=== PATIENT | male | born 1960 | race Caucasian/White ===

== ENCOUNTER 2019-08-24 13:48 | Emergency (ER) | payer OTHER, SELFPAY ==
--- NOTE | ~2019-08-24 | XR_ITS ---
XR hand RT min 3V DATE: 08/24/2019 14:13 INDICATION: Injury by ceiling fan. Pain. TECHNIQUE: 3 views of right hand COMPARISON: None FINDINGS: Osteoarthritic changes are noted at the first through third metacarpophalangeal joints and at the interphalangeal joint of the thumb and distal interphalangeal joint of the second digit in par ticular. No recent fracture, dislocation, periosteal reaction or bone destruction is evident. IMPRESSION: Osteoarthritis; no fracture or dislocation Reviewed, dictated and finalized at location A.
--- NOTE | 2019-08-24 13:52 | ED.GENADULT ---
HPI - General Adult General Chief complaint: Extremity Injury, Upper Stated complaint: right hand injury Time Seen by Provider: 08/24/19 13:52 Source: patient Mode of arrival: ambulatory Limitations: no limitations History of Present Illness HPI narrative: 59-year-old male patient presents to the [facility] with complaints of right hand pain specifically to the index and middle finger. Patient states that about a week ago he was putting on his jacket and reaching up his hand towards the ceiling putting his jacket on and his ceiling fan was on high and he hit his hand on the ceiling fan. Patient states since then he has been taking ibuprofen for the pain and icing it as well as soaking it in warm water. Patient says he feels like it is getting worse and has discomfort when trying to bend the pointer finger and middle finger. Patient denies any numbness or tingling. Related Data Home Medications Medication Instructions Recorded Confirmed lisinopril 40 mg PO DAILY 08/24/19 08/24/19 Allergies Allergy/AdvReac Type Severity Reaction Status Date / Time No Known Allergies Allergy Verified 08/24/19 13:55 Review of Systems Review of Systems: Narrative: CONSTITUTIONAL: Denies fever, chills, or sweats. EYES: Denies visual changes, redness, or discharge. ENT: Denies rhinorrhea, congestion, sore throat, or otalgia. CARDIOVASCULAR: Denies chest pain, palpitations, or edema. RESPIRATORY: Denies cough or dyspnea. GASTROINTESTINAL: Denies abdominal pain, nausea, vomiting, or diarrhea. GENITOURINARY: Denies dysuria or hematuria. SKIN: Denies rash or itching. MUSCULOSKELETAL: Denies back pain, joint pain, or myalgia. Positive right hand pain over the index and middle finger x1 week NEUROLOGIC: Denies headache, numbness, or weakness. PSYCHIATRIC: Denies anxiety or depression. PMFSH Comments At the time of my signature I agree with nursing past medical history, surgical, social, and family history. There is no relevant family history pertinent to the presenting complaint. Exam Narrative: Exam Narrative: GENERAL: Well-appearing, well-nourished, and in no acute distress. HEAD: Normocephalic, atraumatic. EYES: PERRLA and EOMI. ENT: Nares clear, no rhinorrhea or epistaxis. Mucous membranes moist. NECK: Supple. No lymphadenopathy CHEST: Clear to auscultation. No respiratory distress. HEART: Regular rate and rhythm. No murmur heard. Normal peripheral pulses. ABDOMEN: Soft, nontender, nondistended, normal active bowel sounds. EXTREMITIES: The R hand is without obvious asymmetry or deformity when compared to the L hand. Slight swelling noted over the MIP joint of the index finger on the right hand, no erythema, atrophy, or obvious deformity. No surface trauma, open wounds, nail avulsion, tissue avulsion, partial or complete amputation, subungual hematoma, bony deformity. Decreased cascade of fingers especially to the index and middle finger on the right hand. Normal extension of fingers. Patient does have pain and tenderness to palpation over the MIP joint of the right index finger and the MIP joint of the right middle. Pulses and cap refill. SKIN: Warm, dry, no rash. NEURO: No focal deficits. Alert and oriented x3. Course Reevaluation(s) Reevaluation #1: Reevaluated patient after his x-ray had resulted. Notified patient that there is no fractures noted in his x-ray however does appear that he is got some severe osteoarthritis. Discussed with him that the fact that he bumped his hand to the area as well as the fact that is been very rainy recently this could have flared up his osteoarthritis. Discussed with him that I would recommend switching to Tylenol rather than ibuprofen because it is shown that Tylenol has better effect with a constant osteoarthritis. Discussed with patient that he should also be doing some gentle stretching exercises and trying to move that joint to help with range of motion. Discussed with patient I would also encourage i
[2019-08-24 13:56] VITALS: BP 140/80; PULSE 72; RESP 20; TEMP 36.9; O2SAT 99
== END 2019-08-24 14:45 | disposition home or self-care (01) ==
PROVIDERS: Emergency Provider Nurse Practitioner Family; PCP Family Medicine
DX: M19.041 Primary osteoarthritis, right hand (principal); I10 Essential (primary) hypertension
CPT/HCPCS: 73130; 99213; G0463

== ENCOUNTER 2022-05-28 14:24 | Outpatient (CLI) | payer OTHER, SELFPAY ==
[2022-05-28 15:12] LABS: Basophils Percent Auto 0.5 % (0.2-1.2); Eosinophils Absolute Auto 0.4 K/mm3 (0-0.3); Eosinophils Percent Auto 6.9 % (0-4.4); Hematocrit 46.1 % (42.0-52.0); Hemoglobin 15.6 g/dL (14.0-18.0); Immature Granulocyte Absolute 0.03 K/mm3 (0.00-0.031); Immature Granulocyte Percent A 0.5 % (0-0.5); Lymphocytes Absolute Auto 1.71 K/mm3 (0.9-3.2); Lymphocytes Percent Auto 30.4 % (18.3-44.2); Mean Corpuscular HGB Conc 33.8 g/dl (32-36); Mean Corpuscular Hemoglobin 33.2 pg (26-34); Mean Corpuscular Volume 98.1 fl (80-100); Mean Platelet Volume 10.3 fl (7.4-10.4); Monocytes Absolute Auto 0.5 K/mm3 (0.1-0.6); Monocytes Percent Auto 8.9 % (2.6-8.5); Neutrophils Percent Auto 52.8 % (45.5-73.1); Platelet Count Result 176 k/mm3 (150-375); Red Cell Distribution Width 12.7 % (11.5-14.5); White Blood Count 5.6 K/mm3 (4.5-10.0)
[2022-05-28 15:15] LABS: Appearance Urine Clear (Clear); Bilirubin Urine Negative (Negative); Blood Urine Negative (Negative); Color Urine Yellow (Yellow); Glucose Urine UA Negative (Negative); Ketones Urine Negative (Negative); Leukocyte Esterase Ur Negative LEU/UL (NEGATIVE); Nitrate Urine Negative (Negative); Protein Urine Negative (Negative); Urobilinogen Urine 0.2 mg/dL (<2.0); pH Urine 5.5 (5.0-9.0)
[2022-05-28 15:26] LABS: Alanine Aminotransferase 38 U/L (6-50); Albumin Level 4.7 g/dL (3.5-5.1); Alkaline Phosphatase 97 U/L (38-126); Anion Gap 8 mmol/L (8-16); Aspartate Amino Transferase 33 U/L (17-59); Bilirubin,Total 0.5 mg/dL (0.2-1.3); Blood Urea Nitrogen 14 mg/dL (9-20); Calcium 9.2 mg/dL (8.4-10.2); Carbon Dioxide 28 mmol/L (22-30); Chloride 103 mmol/L (98-107); Cholesterol 180 mg/dL (0-200); Estimated Glomerular Filt Rate > 60; Glucose 85 mg/dL (65-110); HDL Direct 58 mg/dL; Magnesium 2.2 mg/dL (1.6-2.3); Potassium 3.7 mmol/L (3.4-5.0); Sodium 139 mmol/L (137-145); Triglycerides 199 mg/dL (<150); Uric Acid 9.9 mg/dL (3.5-8.5)
[2022-05-28 15:37] LABS: LDL Cholesterol Direct 84 mg/dL
[2022-05-28 15:45] LABS: Add Urine Microscopic? YES; Mucus Urine Rare /lpf; Squamous Epithelial Cell Urine Rare /hpf (Few); WBC Urine 0-3 /hpf (0-3)
[2022-05-28 15:51] LABS: Non Pathogenic Casts Not Present
[2022-05-28 15:56] LABS: Prostate Specific Antigen 1.4 ng/mL (< OR = 4.0); Thyroid Stimulating Hormone 0.995 uIU/mL (0.465-4.680)
[2022-05-28 16:32] LABS: Folic Acid 6.1 ng/mL (2.76->20)
[2022-05-28 19:49] LABS: Hemoglobin A1C 5.3 % (<5.7)
== END 2022-05-28 14:25 | disposition home or self-care (01) ==
LOC: ANHLAB 14:26
PROVIDERS: PCP Nurse Practitioner Family; Visit Provider Nurse Practitioner Family
DX: Z13.6 Encounter for screening for cardiovascular disorders (principal); Z13.1 Encounter for screening for diabetes mellitus; Z13.0 Encounter for screening for diseases of the blood and blood-forming organs and certain disorders involving the immune mechanism; I10 Essential (primary) hypertension; Z68.29 Body mass index [BMI] 29.0-29.9, adult; R20.8 Other disturbances of skin sensation; Z12.5 Encounter for screening for malignant neoplasm of prostate; R25.2 Cramp and spasm; Z13.29 Encounter for screening for other suspected endocrine disorder
CPT/HCPCS: 36415; 80053; 80061; 81001; 82607; 82746; 83036; 83735; 84153; 84443; 84550; 85025; G0103

== ENCOUNTER → 2022-12-04 16:16 | Outpatient (CLI) | payer OTHER, SELFPAY ==
--- NOTE | ~2022-12-04 | XR_ITS ---
EXAMINATION: XR hip BI 2V w AP pelvis DATE: 12/04/2022 16:32 INDICATION: Right hip pain. TECHNIQUE: An anteroposterior view of the pelvis and 2 views of each hip were obtained. COMPARISON: None. FINDINGS: Bone alignment is normal. No fracture. There is moderate osteoarthritis of the hips. Surgic al clips overlie right ilium. IMPRESSION: 1. Moderate osteoarthritis of the hips. Reviewed, dictated and finalized at location E.
--- NOTE | ~2022-12-04 | XR_ITS ---
EXAMINATION: XR lumbar spine min 4V DATE: 12/04/2022 16:32 INDICATION: Lumbago with sciatica, right side. TECHNIQUE: 5 views of lumbar spine were obtained. COMPARISON: Lumbar spine radiographs 08/15/2004 FINDINGS: There is 3 degrees dextrocurvature of lumbar spine. There is mild chronic anterior wedging of T12 and L1 vertebral bodies. There is mildly decreased disc height at L4-L5. There are endplate os teophytes at all levels. There is multilevel facet joint osteoarthritis, severe bilaterally at L4-L5 and L5-S1. IMPRESSION: 1. Mild lumbar spondylosis. Reviewed, dictated and finalized at location E. IMPRESSION: 1. Mild lumbar spondylosis.
== END ==
PROVIDERS: PCP Family Medicine; Visit Provider Nurse Practitioner Family
DX: M54.41 Lumbago with sciatica, right side (principal); M54.42 Lumbago with sciatica, left side; G89.29 Other chronic pain; M47.896 Other spondylosis, lumbar region; M16.0 Bilateral primary osteoarthritis of hip
CPT/HCPCS: 72110; 73521

== ENCOUNTER 2023-12-01 11:03 | Observation (INO) | payer OTHER, SELFPAY ==
[2023-12-01] VITALS (9 sets, daily range): BP systolic 126–167; BP diastolic 72–96; PULSE 65–99; RESP 17–22; TEMP 35.9–37.5; O2SAT 93–100
--- NOTE | ~2023-12-01 | US_ITS ---
EXAMINATION: US scrotum doppler DATE: 12/01/2023 12:16 INDICATION: Scrotal mass and pain TECHNIQUE: Testicular sonogram utilizing grayscale and Doppler COMPARISON: None. FINDINGS: The right testis measures 3.2 x 2.9 x 2.2 cm. The left testis measures 3.6 x 2.5 x 2.2 cm. There are multiple tiny echogenic microcalcifications at both testes. Symmetric otherwise normal grayscale appe arance to both testes. There is normal vascular flow to both testes. 3-4 mm anechoic epididymal cyst at the head of the right epididymis. The right epididymis is otherwise normal with normal vascular fl ow. The left epididymis is normal with normal vascular flow. There is a small right hydrocele. No murtaza icocele. Inferolateral to the left testis in the left scrotal wall is a 5.1 x 4.4 x 2.9 cm lesion which is yudelka trally relatively homogeneously hyperechoic and with peripheral scalloped margin surrounded by very h ypoechoic likely complex fluid. There is hyperemia surrounding the lesion on color Doppler but withou t definitive internal vascular flow. There is a shadowing coarse calcification at the periphery of th e lesion. There is a second 2.0 x 1.9 x 1.8 cm similarly hyperechoic lesion also some surrounding vas cular flow but no internal vascular flow on color Doppler. The second lesion extends to within 2 mm o f the skin surface. IMPRESSION: 1. A couple relatively hyperechoic lesions in the left scrotum inferolateral to the left testis. The absence of internal vascular flow and color Doppler raises suspicion of a complex cystic lesion whic h could be infectious or inflammatory in etiology with differential including abscess, hematoma or ep idermoid cyst. Cannot however exclude an extra testicular solid neoplasm either benign or malignant. 2. Small right epididymal head cyst and a few microcalcifications of the otherwise unremarkable bilat eral testes. 3. Small simple appearing anechoic right hydrocele. Reviewed, dictated and finalized at location A. IMPRESSION: 1. A couple relatively hyperechoic lesions in the left scrotum inferolateral t o the left testis. The absence of internal vascular flow and color Doppler rais es suspicion of a complex cystic lesion which could be infectious or inflammato ry in etiology with differential including abscess, hematoma or epidermoid cyst . Cannot however exclude an extra testicular solid neoplasm either benign or ma lignant. 2. Small right epididymal head cyst and a few microcalcifications of the otherw ise unremarkable bilateral testes. 3. Small simple appearing anechoic right hydrocele.
--- NOTE | 2023-12-01 11:17 | ED.MALEGU ---
HPI - Male Genitourinary General Chief complaint: Urogenital-Male <Callie Yao PA-C - Last Filed: 12/03/23 13:09> Stated complaint: growth on scrotum <Callie Yao PA-C - Last Filed: 12/03/23 13:09> Time Seen by Provider: 12/01/23 11:17 <Callie Yao PA-C - Last Filed: 12/03/23 13:09> Focused HPI: This is a 63-year-old male that presents to the emergency department for growth on his scrotum. Reports he has had this years ago and had to have it removed in the past. He a noticed it appearing again recently, the area is painful. Denies fevers, dysuria, hematuria. GENERAL: Well-appearing, well-nourished, and in no acute distress. HEAD: Normocephalic, atraumatic. CHEST: Clear to auscultation. ?No respiratory distress. HEART: Regular rate and rhythm.? NEURO: ?Alert and oriented x3. Patient screened in triage and initial orders placed.? ?Additional care and disposition to be based upon?diagnostic testing and treatment. <Callie Yao PA-C - Last Filed: 12/03/23 13:09> History of Present Illness HPI Narrative: 63-year-old male presenting with scrotal pain. States that he has had a growth on his scrotum for many years but over the last few days it has become increasingly painful. No fevers, dysuria, hematuria. No abdominal pain, no nausea or vomiting. Patient saw Urology who advised that he come in. <Kristine Clements MD - Last Filed: 12/01/23 21:26> Related Data Home medications: Home Medications Medication Instructions Recorded Confirmed cetirizine 10 mg tablet (Zyrtec) 10 mg PO DAILY allergy symptoms 09/29/23 12/01/23 <Callie Yao PA-C - Last Filed: 12/03/23 13:09> Allergies/Adverse reactions: Allergies Allergy/AdvReac Type Severity Reaction Status Date / Time No Known Allergies Allergy Verified 12/01/23 18:09 <Callie Yao PA-C - Last Filed: 12/03/23 13:09> Review of Systems Review of Systems: All systems reviewed & are unremarkable except as noted in HPI and below <Kristine Clements MD - Last Filed: 12/01/23 21:26> [facility] Past Medical History Medical History: Medical History Anxiety Arthritis B12 deficiency Bilateral hip pain BMI 28.0-28.9,adult BMI 29.0-29.9,adult BMI 30.0-30.9,adult Burning sensation of feet Chest pain Chronic low back pain with bilateral sciatica Chronic rhinitis COPD (chronic obstructive pulmonary disease) Elevated uric acid in blood Encounter to establish care Heart attack Hernia HTN (hypertension) Hypersomnia Low back pain Muscle cramping Rash and nonspecific skin eruption Rhinitis Screening for malignant neoplasm of colon declined Screening for malignant neoplasm of lung declined by patient Snoring Tobacco abuse <Callie Yao PA-C - Last Filed: 12/03/23 13:09> Family History Family History: Family History Father Alcohol abuse Cancer Diabetes mellitus Mother Hypertension Heart disease Grandparent Alcohol abuse <Callie Yao PA-C - Last Filed: 12/03/23 13:09> Social History Social History: Social History Smoking packs per day: 2 Smoking cigarettes per day: 40.0 Years smoked: 45 Smoking pack-years: 90.00 Smoking status: Current every day smoker Tobacco type: cigarettes Alcohol intake: current Drinks per week: 12 Alcohol use details: BEERS Substance use: current Substance use type: marijuana Other substance usage details: RECREATIONAL AND PAIN Last use: 11/29/23 Do You Feel Safe in your Home?: Yes Lack of Transportation: No Lack of Food: Never True Current Housing: Decline to Answer Concerned About Future Housing: No Difficulty Paying Gas/Electric Bills: No Difficulty Paying for Meds: YES Currently Unemployed: No Education: Decline to
[2023-12-01] MEDS: SODIUM CHLORIDE 0.9% IV 1,000 ML 999 ML IV CONT (14:18)
[2023-12-01] MEDS: cefTRIAXone 2 GM/NS 100 ML 2 GM/100 ML BAG IVPB (14:19)
[2023-12-01] MEDS: metroNIDAZOLE 500 MG/ISO 100ML 500 MG/100 ML BAG 100 MG IVPB (14:25)
[2023-12-01 14:26] LABS: Basophils Absolute Auto 0.1 K/mm3 (0.0-0.1); Basophils Percent Auto 0.4 % (0.2-1.2); Eosinophils Absolute Auto 0.2 K/mm3 (0-0.3); Eosinophils Percent Auto 1.7 % (0-4.4); Hematocrit 45.6 % (42.0-52.0); Hemoglobin 15.9 g/dL (14.0-18.0); Immature Granulocyte Absolute 0.04 K/mm3 (0.00-0.031); Immature Granulocyte Percent A 0.3 % (0-0.5); Lymphocytes Absolute Auto 1.34 K/mm3 (0.9-3.2); Mean Corpuscular HGB Conc 34.9 g/dl (32-36); Mean Corpuscular Hemoglobin 33.3 pg (26-34); Mean Corpuscular Volume 95.4 fl (80-100); Mean Platelet Volume 10.4 fl (7.4-10.4); Monocytes Absolute Auto 1.2 K/mm3 (0.1-0.6); Monocytes Percent Auto 9.4 % (2.6-8.5); Neutrophils Absolute Auto 9.4 K/mm3 (1.3-6.7); Neutrophils Percent Auto 77.2 % (45.5-73.1); Platelet Count Result 178 k/mm3 (150-375); Red Blood Count 4.78 M/mm3 (4.6-6.20); Red Cell Distribution Width 12.5 % (11.5-14.5); White Blood Count 12.2 K/mm3 (4.5-10.0)
[2023-12-01 14:37] LABS: Alanine Aminotransferase 21 U/L (6-50); Albumin Level 4.7 g/dL (3.5-5.1); Alkaline Phosphatase 96 U/L (38-126); Anion Gap 12 mmol/L (4-12); Aspartate Amino Transferase 21 U/L (17-59); Bilirubin,Total 1.5 mg/dL (0.2-1.3); Blood Urea Nitrogen 15 mg/dL (9-20); Calcium 9.8 mg/dL (8.4-10.2); Carbon Dioxide 24 mmol/L (22-30); Chloride 101 mmol/L (98-107); Estimated CRCL calculation 80 ml/min; Estimated Glomerular Filt Rate > 60; Glucose 122 mg/dL (65-110); Potassium 3.6 mmol/L (3.4-5.0); Sodium 137 mmol/L (137-145)
--- NOTE | 2023-12-01 14:44 | PM.IMHP ---
H&P: HPI History of Present Illness Date/Time: 12/01/23 14:44 Chief Complaint: Scrotal swelling and pain Narrative: 63-year-old male who had a several year history of scrotal swelling. He developed more pain over the past few days decided to come to the emergency room today. He is not quite certain if it has drained. He states that it has had a similar episode about 10 years ago which required drainage. He denied fevers at home. His temperature is 99?. His white count is pending at this time. He did undergo a scrotal ultrasound which revealed a 5.1 x 4.4 x 2.9 cm hypoechoic area in the left inferior scrotal area consistent with either hemorrhage or abscess. A 2nd lesion measuring 2 cm x 1.9 x 1.8 cm is adjacent to it. He is being admitted for IV antibiotics and further management. Review of Systems Review of Systems: All systems reviewed & are unremarkable except as noted in HPI and below PMFSH Past Medical History Medical History Anxiety Arthritis B12 deficiency Bilateral hip pain BMI 28.0-28.9,adult BMI 29.0-29.9,adult BMI 30.0-30.9,adult Burning sensation of feet Chest pain Chronic low back pain with bilateral sciatica Chronic rhinitis COPD (chronic obstructive pulmonary disease) Elevated uric acid in blood Encounter to establish care Heart attack Hernia HTN (hypertension) Hypersomnia Low back pain Muscle cramping Rash and nonspecific skin eruption Rhinitis Screening for malignant neoplasm of colon declined Screening for malignant neoplasm of lung declined by patient Snoring Tobacco abuse Family History Family History Father Alcohol abuse Cancer Diabetes mellitus Mother Hypertension Heart disease Grandparent Alcohol abuse Social History Social History Smoking packs per day: 2 Smoking cigarettes per day: 40.0 Years smoked: 45 Smoking pack-years: 90.00 Smoking status: Current every day smoker Tobacco type: cigarettes Alcohol intake: current Drinks per week: 12 Alcohol use details: BEERS Substance use: current Substance use type: marijuana Other substance usage details: RECREATIONAL AND PAIN Lack of Transportation: No Lack of Food: Never True Current Housing: I Have Housing Concerned About Future Housing: No Difficulty Paying Gas/Electric Bills: No Difficulty Paying for Meds: No Currently Unemployed: No Education: Trade/Vocational Certificate Difficulty w/ Childcare or Family Care: No Living arrangements: with family Spiritual care concerns: No Meds Home Medications and Allergies Home Medications Medication Instructions Recorded Confirmed Type tizanidine 4 mg tablet 4 mg PO BID PRN muscle spasticity 12/04/22 09/29/23 Rx #60 tabs lisinopril 40 mg tablet 40 mg PO DAILY #30 tabs 08/12/23 09/29/23 Rx amitriptyline 10 mg tablet 10 mg PO QHS #30 tabs 09/02/23 09/29/23 Rx celecoxib 100 mg capsule (Celebrex) 100 mg PO BID #60 caps 09/02/23 09/29/23 Rx ketoconazole 2 % topical cream 1 applic topical BID #15 grams 09/02/23 09/29/23 Rx triamcinolone acetonide 0.5 % 1 applic topical BID #30 grams 09/02/23 09/29/23 Rx topical cream albuterol sulfate 90 mcg/actuation 1 - 2 inh inhalation Q4-6H PRN 09/07/23 09/29/23 Rx aerosol inhaler shortness of breath or wheezing #8.5 grams fluticasone 250 mcg-salmeterol 50 1 inh inhalation BID #60 ea 09/07/23 09/29/23 Rx mcg/dose blistr powdr for inhalation (Advair Diskus) cetirizine 10 mg tablet (Zyrtec) 10 mg PO DAILY allergy symptoms 09/29/23 09/29/23 History Allergies Allergy/AdvReac Type Severity Reaction Status Date / Time No Known Allergies Allergy Verified 12/01/23 11:15 Vital Signs Vital Signs - 24 hr 12/01/23 11:11 12/01/23 14:17 Temperature 36.8 C Pulse Rate 99 98 Respiratory Rate 20 17
[2023-12-01] MEDS: LACTATED RINGERS 1,000 ML 30 ML IV CONT (14:50)
--- NOTE | 2023-12-01 14:51 | WPDHPUPDATE1 ---
History and Physical Update Update Date/Time: 12/01/23 14:51 History and Physical has been reviewed, including an updated exam of the patient. There are NO changes in the patient's condition. Risks, benefits, and alternatives have been discussed and questions answered. Patient agrees to proceed with procedure. I&D of scrotal abscess
--- NOTE | 2023-12-01 14:58 | ECG_ITS ---
Test Date: 2023-12-01 15:06:36 Measurements Intervals [place] Rate: 88 P: 46 CO: 157 QRS: 28 QRSD: 88 T: 51 QT: 349 QTc: 424 Interpretive Statements SINUS RHYTHM NONSPECIFIC T-WAVE ABNORMALITY ABNORMAL ECG No previous ECG available for comparison Electronically Signed On 12-01-2023 18:05:57 CDT by Abhilash Martinez M.D.
--- NOTE | 2023-12-01 15:00 | WPDANESEPPF ---
Anes - Initial Pre Proc Eval Procedure: Operation Date: 12/01/23 15:30 Proposed Procedures p Incision and Drainage Scrotal Abscess - Gerson Parekh MD Date/Time: 12/01/23 15:00 Surgeon: Gerson Parekh MD Pre Op Diagnosis: growth on scrotum Patient Data Age: 63 Gender: M Height: 1.88 m Weight: 102.2 kg Last Vital Signs Temp 98.3 F 12/01/23 11:11 Pulse 98 12/01/23 14:17 Resp 17 12/01/23 14:17 BP 167/96 H 12/01/23 14:17 Pulse Ox 95 12/01/23 14:17 O2 Del Method Room Air 12/01/23 11:11 Allergies Allergy/AdvReac Type Severity Reaction Status Date / Time No Known Allergies Allergy Verified 12/01/23 11:15 Home Medications Medication Instructions Recorded Confirmed Type tizanidine 4 mg tablet 4 mg PO BID PRN muscle spasticity 12/04/22 09/29/23 Rx #60 tabs lisinopril 40 mg tablet 40 mg PO DAILY #30 tabs 08/12/23 09/29/23 Rx amitriptyline 10 mg tablet 10 mg PO QHS #30 tabs 09/02/23 09/29/23 Rx celecoxib 100 mg capsule (Celebrex) 100 mg PO BID #60 caps 09/02/23 09/29/23 Rx ketoconazole 2 % topical cream 1 applic topical BID #15 grams 09/02/23 09/29/23 Rx triamcinolone acetonide 0.5 % 1 applic topical BID #30 grams 09/02/23 09/29/23 Rx topical cream albuterol sulfate 90 mcg/actuation 1 - 2 inh inhalation Q4-6H PRN 09/07/23 09/29/23 Rx aerosol inhaler shortness of breath or wheezing #8.5 grams fluticasone 250 mcg-salmeterol 50 1 inh inhalation BID #60 ea 09/07/23 09/29/23 Rx mcg/dose blistr powdr for inhalation (Advair Diskus) cetirizine 10 mg tablet (Zyrtec) 10 mg PO DAILY allergy symptoms 09/29/23 09/29/23 History Laboratory Tests 12/01/23 14:22 WBC 12.2 H K/mm3 (4.5-10.0) RBC 4.78 M/mm3 (4.6-6.20) Hgb 15.9 g/dL (14.0-18.0) Hct 45.6 % (42.0-52.0) MCV 95.4 fl (80-100) MCH 33.3 pg (26-34) MCHC 34.9 g/dl (32-36) RDW 12.5 % (11.5-14.5) Plt Count 178 k/mm3 (150-375) MPV 10.4 fl (7.4-10.4) Immature Gran % (Auto) 0.3 % (0-0.5) Neut % (Auto) 77.2 H % (45.5-73.1) Lymph % (Auto) 11.0 L % (18.3-44.2) Mobile % (Auto) 9.4 H % (2.6-8.5) Eos % (Auto) 1.7 % (0-4.4) Baso % (Auto) 0.4 % (0.2-1.2) Lymph # (Auto) 1.34 K/mm3 (0.9-3.2) Mobile # (Auto) 1.2 H K/mm3 (0.1-0.6) Eos # (Auto) 0.2 K/mm3 (0-0.3) Baso # (Auto) 0.1 K/mm3 (0.0-0.1) Abs Immat Gran (auto) 0.04 H K/mm3 (0.00-0.031) Absolute Neuts (auto) 9.4 H K/mm3 (1.3-6.7) Absolute Nucleated RBC 0.000 K/mm3 (0.0-0.012) Nucleated RBC % 0.0 % (0.0-0.2) Sodium 137 mmol/L (137-145) Potassium 3.6 mmol/L (3.4-5.0) Chloride 101 mmol/L (98-107) Carbon Dioxide 24 mmol/L (22-30) Anion Gap 12 mmol/L (4-12) BUN 15 mg/dL (9-20) Creatinine 1.00 mg/dL (0.7-1.3) Estim Creat Clear Calc 80 ml/min Estimated GFR > 60 (59 - ) Glucose 122 H mg/dL (65-110) Calcium 9.8 mg/dL (8.4-10.2) Total Bilirubin 1.5 H mg/dL (0.2-1.3) AST 21 U/L (17-59) ALT 21 U/L (6-50) Alkaline Phosphatase 96 U/L (38-126) Total Protein 8.0 g/dL (6.3-8.2) Albumin 4.7 g/dL (3.5-5.1) Patient hx anesthesia problems: none Family hx anesthesia problems: none Results Review: All pre-operative results and documents have been reviewed as part of the pre-operative evaluation. [facility] Past Medical History Medical History Anxiety Arthritis B12 deficiency Bilateral hip pain BMI 28.0-28.9,adult BMI 29.0-29.9,adult BMI 30.0-30.9,adult Burning sensation of feet Chest pain Chronic low back pain with bilateral sciatica Chronic rhinitis COPD (chronic obstructive pulmonary disease) Elevated uric acid in blood Encounter to establish care Heart attack Hernia HTN (hypertension) Hypersomnia Low back pain Muscle cramping Rash and nonspecific skin eruption Rhinitis
[2023-12-01] MEDS: BUPivacaine HCL 0.5% 10 ML AMP 30 ML INFILTRATE (15:42)
--- NOTE | 2023-12-01 16:13 | W.PM.PROC2 ---
Procedure Note - Detailed Date of Procedure 12/01/23 Pre-op Diagnosis growth on scrotum, scrotal abscess Post-op Diagnosis Same Procedure Performed I&D of scrotal abscess, excision of 2 scrotal lesions 1 measuring 1.5 cm inferiorly has appearance of condyloma, 2nd lesion approximately 2 cm x 1 cm penoscrotal area Surgeon Gerson Parekh MD Anesthesia General Description of Procedure Patient was taken the operative suite correctly identified. Once anesthesia was obtained he was placed in the supine position prepped draped usual sterile fashion. He has a lesion measuring approximate 1/2 cm inferior scrotum this does have an appearance of a condyloma but is in the field of the drainage. As such this was excised and sent for evaluation. It was closed using 3-0 chromic interrupted fashion. He had a 2nd lesion more superiorly near the penoscrotal junction measuring 2 cm x 1 cm. This had a cystic appearance. This was excised. Incision was closed using 3-0 chromic in a running fashion. The fluctuant abscess area 0 Leiden between these 2 areas. I went ahead and incised that and cultured the purulence which was extracted. There was approximately 25-30 cc of purulence. The wound was copiously irrigated. I did not feel any communication elsewhere. Skin edges bled nicely. The wound was packed with iodoform gauze. Anesthetize the areas using bupivacaine 0.25%. Patient tolerated procedure well without any complications and was taken recovery stable condition. He will be admitted for IV antibiotics as well as wound dressing changes. Most likely be discharged in the a.m.. This completes dictation. Please send a copy of op note to my office. Estimated Blood Loss 5 Drains No Packing Yes Pathology Yes Complications No immediate complications Condition Stable Disposition PACU
[2023-12-01] MEDS: VANCOMYCIN 1,500 MG/NS 500 ML BAG 250 MG IVPB (16:35)
--- NOTE | 2023-12-01 18:07 | ADMGEN ---
This patient, Chente Michel Jr., was admitted to [address] [place] [address] Room 305-02. Patient/family oriented to hospital policies and general routines including ID bracelet, bed and alarms, visiting hours, pain management, procedures, bathroom and other care routines, personal items, smoking policy, room service/diet, and visiting hours. Information on how to activate the Rapid Response Team has been discussed. Patient/Family are encouraged to report perceived risks to care and to ask questions if they do not understand what they are told or what they should do.
[2023-12-01] MEDS: HYDROcodone/acetaminophen (*CRX) 5-325 MG TABLET 2 TAB PO (18:12)
[2023-12-01] MEDS: FLUTICASONE/SALMETEROL 115-21 MCG INHALER 1 PUFF 2 PUFF INHALATION (20:15)
[2023-12-01] MEDS: AMITRIPTYLINE HCL 10 MG TABLET PO (20:27)
[2023-12-01 22:05] LABS: Add Urine Microscopic? YES; Appearance Urine Clear (Clear); Bacteria Urine None Seen /hpf; Bilirubin Urine Negative (Negative); Blood Urine Negative (Negative); Color Urine Yellow (Yellow); Glucose Urine UA Negative (Negative); Ketones Urine Trace mg/dL (Negative); Leukocyte Esterase Ur Negative LEU/UL (Negative); Nitrate Urine Negative (Negative); Non Pathogenic Casts 0-2; Protein Urine Trace mg/dL (Negative); RBC Urine 0-2 /hpf (0-2); Specific Grav Ur 1.015 (1.001-1.035); Squamous Epithelial Cell Urine None Seen /hpf (Few); WBC Urine 0-5 /hpf (0-3)
[2023-12-02 01:55] VITALS: BP 133/81; PULSE 70; RESP 20; TEMP 36.1; O2SAT 94
[2023-12-02] MEDS: HYDROcodone/acetaminophen (*CRX) 5-325 MG TABLET 2 TAB PO ×3 (04:05→22:39)
[2023-12-02 05:33] VITALS: BP 128/76; PULSE 67; RESP 20; TEMP 36.4; O2SAT 92
[2023-12-02] MEDS: FLUTICASONE/SALMETEROL 115-21 MCG INHALER 1 PUFF 2 PUFF INHALATION ×2 (07:23→19:33)
[2023-12-02] MEDS: LORATADINE 10 MG TABLET PO (08:08)
[2023-12-02] MEDS: lisinopriL 20 MG TABLET 40 MG PO (08:08)
--- NOTE | 2023-12-02 09:44 | WPDUROPN2 ---
Progress Note: A&P Assessment and Plan (1) Scrotal abscess: Code(s): N49.2 - Inflammatory disorders of scrotum Status: Acute Assessment and Plan: Underwent I&D of scrotal abscess and excision of 2 scrotal lesions on 12/01/2023. Tolerated procedure well. Pain is well controlled at this time. Abscess cultures are pending. Continue IV ceftriaxone. Continue analgesics as needed. Hopeful discharge later today if continued improvement Subjective Subjective Date/Time Seen: 12/02/23 09:44 Interval history: Doing well today. Pain well controlled postoperatively. Voiding without difficulty. Tolerating diet. Tolerating ambulation. No nausea, vomiting, fever, chills. Review of Systems Review of Systems: All systems reviewed & are unremarkable except as noted in HPI and below Exam Narrative: General: Awake, alert, comfortable, no acute distress HEENT: Normocephalic, atraumatic, sclerae anicteric Respiratory: Normal respiratory effort, no accessory muscle use Abdomen: Nondistended, soft, nontender : Scrotum wrapped with dressing that is clean and dry, minimally tender to palpation Skin: Normal coloration, warm and dry Neurologic: No focal neuro deficits noted Psychiatric: Appropriate mood and affect, judgment and insight intact Objective Data Vital Signs Vital Signs: Vital Signs - 24 hr 12/01/23 11:11 12/01/23 14:17 12/01/23 14:49 Temperature 98.3 F 98.9 F Pulse Rate 99 98 93 Respiratory Rate 20 17 20 Blood Pressure 154/92 H 167/96 H 149/89 H Pulse Oximetry 97 95 96 Oxygen Delivery Room Air Room Air Oxygen Flow Rate 12/01/23 16:18 12/01/23 16:45 12/01/23 17:00 Temperature 99.5 F Pulse Rate 88 79 91 Respiratory Rate 20 20 22 H Blood Pressure 147/78 H 136/83 133/87 Pulse Oximetry 100 98 93 Oxygen Delivery Simple Face Mask Room Air Room Air Oxygen Flow Rate 6 12/01/23 17:15 12/01/23 16:30 12/01/23 22:06 Temperature 98.0 F 96.6 F L Pulse Rate 84 80 65 Respiratory Rate 22 H 22 H 20 Blood Pressure 146/80 H 146/85 H 126/72 Pulse Oximetry 93 98 93 Oxygen Delivery Room Air Simple Face Mask Oxygen Flow Rate 6 12/02/23 01:55 12/02/23 05:33 Temperature 96.9 F L 97.5 F L Pulse Rate 70 67 Respiratory Rate 20 20 Blood Pressure 133/81 128/76 Pulse Oximetry 94 92 Oxygen Delivery Oxygen Flow Rate Intake/Output Intake/Output: Intake & Output 11/29/23 11/30/23 12/01/23 12/02/23 23:59 23:59 23:59 23:59 Intake Total 50 500 Output Total 600 Balance 50 -100 Meds/Results Medications: Active Medications Generic Name Dose Route Start Last Admin Trade Name Freq PRN Reason Stop Dose Admin Hydrocodone Bitart/Acetaminophen 2 tab 12/01/23 17:19 12/02/23 04:05 Hydrocodone/Acetaminophen (*Crx) 5-325 Mg Tablet PO 2 tab Q6H PRN Administration Pain Rated 4-6 Amitriptyline HCl 10 mg 12/01/23 21:00 12/01/23 20:27 Amitriptyline Hcl 10 Mg Tablet PO 10 mg QHS BIA Administration Ceftriaxone Sodium 1 gm in 50 mls @ 100 mls/hr 12/02/23 12:00 Rocephin 1 Gm/Ns 50 Ml IVPB Q24H BIA Lisinopril 40 mg 12/02/23 09:00 12/02/23 08:08 Lisinopril 20 Mg Tablet PO 40 mg DAILY BIA Administration Loratadine 10 mg 12/02/23 09:00 12/02/23 08:08 Loratadine 10 Mg Tablet PO 10 mg QAM BIA Administration Fluticasone/Salmeterol 2 puff 12/01/23 20:00 12/02/23 07:23 Fluticasone/Salmeterol 115-21 Mcg Inhaler 1 Puff INHALATION 2 puff Q12HRT BIA Administration Radiology Results: ITS Impressions Scrotum Ultrasound 12/01/23 12:19 IMPRESSION: 1. A couple relatively hyperechoic lesions in the left scrotum inferolateral to the left testis. The absence of internal vascular flow and color Doppler raises suspicion of a complex cystic lesion which could be infectious or inflammatory in etiology with differential including abscess, hematoma or epidermoid cyst. Cannot however exclude an extra testicular solid
[2023-12-02 14:00] VITALS: BP 127/78; PULSE 103; RESP 16; TEMP 37.2; O2SAT 94
--- NOTE | 2023-12-02 14:14 | P.PNAN_ITS ---
Anes - Prog Note Post-Op Date/Time: 12/02/23 14:14 Cardiovascular status: normal Respiratory status: normal Airway patency: baseline Mental status: baseline Post-Op hydration status: normal Vital Signs: Last Vital Signs Temp 36.4 C L 12/02/23 05:33 Pulse 67 12/02/23 05:33 Resp 20 12/02/23 05:33 BP 128/76 12/02/23 05:33 Pulse Ox 92 12/02/23 05:33 O2 Del Method Room Air 12/01/23 17:15 O2 Flow Rate 6 12/01/23 16:30 Pain Score (VAS): 0 I/O: Intake & Output 12/01/23 12/02/23 12/02/23 23:59 07:59 15:59 Intake Total 50 500 360 Output Total 600 Balance 50 -100 360 Laboratory Tests 12/01/23 14:22 12/01/23 14:22 12/01/23 12/01/23 14:22 21:55 WBC 12.2 H RBC 4.78 Hgb 15.9 Hct 45.6 MCV 95.4 MCH 33.3 MCHC 34.9 RDW 12.5 Plt Count 178 MPV 10.4 Immature Gran % (Auto) 0.3 Neut % (Auto) 77.2 H Lymph % (Auto) 11.0 L [place] % (Auto) 9.4 H Eos % (Auto) 1.7 Baso % (Auto) 0.4 Lymph # (Auto) 1.34 [place] # (Auto) 1.2 H Eos # (Auto) 0.2 Baso # (Auto) 0.1 Abs Immat Gran (auto) 0.04 H Absolute Neuts (auto) 9.4 H Absolute Nucleated RBC 0.000 Nucleated RBC % 0.0 Sodium 137 Potassium 3.6 Chloride 101 Carbon Dioxide 24 Anion Gap 12 BUN 15 Creatinine 1.00 Estim Creat Clear Calc 80 Estimated GFR > 60 Glucose 122 H Calcium 9.8 Total Bilirubin 1.5 H AST 21 ALT 21 Alkaline Phosphatase 96 Total Protein 8.0 Albumin 4.7 Urine Color Yellow Urine Appearance Clear Urine pH 6.0 Ur Specific Platter 1.015 Urine Protein Trace Urine Glucose (UA) Negative Urine Ketones Trace H Ur Blood (Man) Negative Urine Nitrate Negative Urine Bilirubin Negative Urine Urobilinogen 2.0 H Leukocyte Esterase Rfl Negative Urine RBC 0-2 Urine WBC 0-5 Ur Squamous Epith Cells None seen Urine Bacteria None seen Urine Casts 0-2 Microbiology 12/01/23 15:52 Abscess Anaerobic Culture - Preliminary Post-procedural complaints: none Patient Feedback: Patient satisfied with anesthetic care.
[2023-12-02 20:15] VITALS: BP 134/72; PULSE 68; RESP 18; TEMP 36.2; O2SAT 92
[2023-12-02] MEDS: NICOTINE (*PBKC) 21 MG PATCH 1 PATCH TRANSDERM (20:18)
[2023-12-02] MEDS: AMITRIPTYLINE HCL 10 MG TABLET PO (21:02)
--- NOTE | 2023-12-02 23:07 | PC.NURSE ---
Called on-call urologist to clarify wound care instructions. Dr Terrell stated to leave dressing alone until morning when day time physician can clarify the dressing change order.
[2023-12-03 05:00] VITALS: BP 117/73; PULSE 68; RESP 20; TEMP 36; O2SAT 93
[2023-12-03 06:00] VITALS: BP 117/73; PULSE 68; RESP 20; TEMP 36; O2SAT 93
[2023-12-03] MEDS: HYDROcodone/acetaminophen (*CRX) 5-325 MG TABLET 2 TAB PO ×2 (07:54→13:29)
[2023-12-03] MEDS: LORATADINE 10 MG TABLET PO (07:56)
[2023-12-03] MEDS: lisinopriL 20 MG TABLET 40 MG PO (07:56)
[2023-12-03] MEDS: FLUTICASONE/SALMETEROL 115-21 MCG INHALER 1 PUFF 2 PUFF INHALATION (08:00)
--- NOTE | 2023-12-03 13:31 | PM.DS ---
DS: Admitting Diagnosis Discharge Date 12/03/23 Admitting Diagnosis Scrotal abscess DS: Discharge Diagnosis Discharge Diagnosis (1) Scrotal abscess: Code(s): N49.2 - Inflammatory disorders of scrotum Status: Acute DS: Summary Hospital Course Hospital Course: Chente Michel is a 63 year old male with a history of multiple medical problems, tobacco abuse, and no prior urologic history who presented to [facility] on 12/01/23 due to scrotal pain and abnormal skin findings on scrotum. He was found to have a scrotal abscess and underwent I&D of abscess as well as excision of 2 scrotal lesions on 12/01/[address] Parekh. He tolerated the procedure well and his pain was well controlled. He was educated on proper dressing care and will continue packing and wet to dry dressing changes. Home health services were initiated to assist with wound care. He was overall feeling improved and felt comfortable with plans for discharge home. He will continue course of antibiotics and analgesics following discharge. Abscess cultures will be monitored and adjustment to antibiotics will be initiated if indicated. He will follow up with Dr. Parekh in 2 weeks for postoperative evaluation and wound check. We dicussed worrisome signs and symptoms for which to seek care. He was discharged in stable condition on 12/03/23. Status at Discharge Functional status at discharge: independent ambulation Overall status at discharge: patient is progressing back to baseline Time Spent with Patient Time attestation: Total time spent providing and/or coordinating discharge services:45 minutes Time spent: Greater than 30 minutes Exam Narrative: General: Awake, alert, comfortable, no acute distress HEENT: Normocephalic, atraumatic, sclerae anicteric Respiratory: Normal respiratory effort, no accessory muscle use Abdomen: Nondistended, soft, nontender : Scrotum wrapped with dressing that is clean and dry, minimally tender to palpation Skin: Normal coloration, warm and dry Neurologic: No focal neuro deficits noted Psychiatric: Appropriate mood and affect, judgment and insight intact DS: Data Data Completed and Pending Completed studies during hospitalization: Pending at discharge 12/01/23 15:44 Surgical [PTH] Routine Surgical [PTH] Routine Labs on day of discharge: Preliminary micro results at discharge 12/01/23 15:52 Anaerobic Culture - Preliminary Abscess Aerobic Culture - Preliminary Discharge Plan Discharge Attending physician on discharge: Gerson Parekh Discharging Clinician: Dania Wheat Patient Disposition: Home Health Service Activity: as tolerated Diet: regular Discharge Instructions: Per Care Coordination: [facility] will contact you prior to their first visit. [facility] will follow for managed care liaison at home. [facility] can be contacted at [phone]. Continue to pack the wound and change the dressing 2-3 times per day Continue with scrotal support and elevation You can take tylenol as needed for pain. You can take norco for breakthrough pain. Decrease use of this medication over the next 1-[address] or drink alcohol while taking this medication. Call 911 if you have shallow breathing or loss of consciousness. You will need to take cefdinir two times per day for the next 5 days You will need to follow up with Dr. Parekh in 2 weeks Call the office or go to the ER if you develop worsened scrotal pain, fevers, chills, or other bothersome symptoms. Patient Instructions: Antibiotic Form Stand Alone Forms: General Discharge Information Follow-up/Referrals: Rasheeda Stovall NP [Primary Care Provider] - Gerson Parekh MD [Physician] - 2 Weeks Discharge Medications: New hydrocodone-acetaminophen 5-325 mg Tablet 1 tablet PO Q6H PRN (Reason: breakthrough pain) Qty: 10 0RF cefdinir 300 mg capsule 300 mg PO Q12H Qty: 10 0R
== END 2023-12-03 14:24 | disposition home health service (06) ==
LOC: ANHED 14:14 → ANHSURGERY 14:14 → ANH3MEDSUR 17:41 → ANHSURGERY 12-02 03:18 → ANH3MEDSUR 12-02 03:18
PROVIDERS: Physician Assistant; Admitting Provider Urology; Emergency Provider Emergency Medicine; PCP Nurse Practitioner Family; Visit Provider Urology
PROC: (CPT 54700; principal; 2023-12-01 15:30)
DX: N49.2 Inflammatory disorders of scrotum (principal); A63.0 Anogenital (venereal) warts; I10 Essential (primary) hypertension; J44.9 Chronic obstructive pulmonary disease, unspecified; I25.2 Old myocardial infarction; F41.9 Anxiety disorder, unspecified; E53.8 Deficiency of other specified B group vitamins; F17.210 Nicotine dependence, cigarettes, uncomplicated; F12.90 Cannabis use, unspecified, uncomplicated; Z79.51 Long term (current) use of inhaled steroids
CPT/HCPCS: 54700; 11422 ×2; 36415; 76870; 80053; 81001; 85025; 87070; 87075; 87076; 87077; 87185; 87205; 88305; 93005; 93976; 94640; 96361; 96374; 96375; 99285; A9270; G0378; J0330; J0696; J1100; J1836; J2250; J2405; J2704; J3010; J3370; J7030; J7120

== ENCOUNTER 2024-04-25 12:27 | Emergency (ER) | payer OTHER, SELFPAY ==
[2024-04-25 12:33] VITALS: BP 156/91; PULSE 76; RESP 18; TEMP 36.7; O2SAT 97
[2024-04-25 14:48] VITALS: BP 181/85; PULSE 71; RESP 16; O2SAT 97
--- NOTE | 2024-04-25 15:07 | ED.GENADULT ---
HPI - General Adult General Chief complaint: Back Pain/Injury Stated complaint: back pain Time Seen by Provider: 04/25/24 14:33 History of Present Illness HPI narrative: 64-year-old male presents to the emergency department for evaluation for lower back pain. Patient reports pain has been bothering him for over the last few days. Patient denies any specific falls or injuries. Patient denies any numbness or tingling. Patient denies any change in bowel or bladder habits. Patient reports he does have a history of chronic back pain and was supposed to have a fusion of his lumbar vertebrae many years ago but patient declined. Patient states the pain is worsened with lifting and twisting and patient states he does do a lot a lifting and twisting with work. Related Data Home Medications ?Medication ?Instructions ?Recorded ?Confirmed ?Last Taken ?Type cetirizine 10 mg tablet (Zyrtec) 10 mg PO DAILY allergy symptoms 09/29/23 12/01/23 Unknown History Allergies Allergy/AdvReac Type Severity Reaction Status Date / Time No Known Allergies Allergy Verified 04/25/24 12:39 Review of Systems Review of Systems: All systems reviewed & are unremarkable except as noted in HPI and below PMFSH Past Medical History Medical History Anxiety Arthritis B12 deficiency Bilateral hip pain BMI 28.0-28.9,adult BMI 29.0-29.9,adult BMI 30.0-30.9,adult Burning sensation of feet Chest pain Chronic low back pain with bilateral sciatica Chronic rhinitis COPD (chronic obstructive pulmonary disease) Elevated uric acid in blood Encounter to establish care Heart attack Hernia HTN (hypertension) Hypersomnia Low back pain Muscle cramping Rash and nonspecific skin eruption Rhinitis Screening for malignant neoplasm of colon declined Screening for malignant neoplasm of lung declined by patient Snoring Tobacco abuse Family History Family History Father Alcohol abuse Cancer Diabetes mellitus Mother Hypertension Heart disease Grandparent Alcohol abuse Social History Social History Smoking packs per day: 2 Smoking cigarettes per day: 40.0 Years smoked: 45 Smoking pack-years: 90.00 Smoking status: Current every day smoker Tobacco type: cigarettes Alcohol intake: current Drinks per week: 12 Alcohol use details: BEERS Substance use: current Substance use type: marijuana Other substance usage details: RECREATIONAL AND PAIN Last use: 11/29/23 Do You Feel Safe in your Home?: Yes Lack of Transportation: No Lack of Food: Never True Current Housing: Decline to Answer Concerned About Future Housing: No Difficulty Paying Gas/Electric Bills: No Difficulty Paying for Meds: YES Currently Unemployed: No Education: Decline to Answer Difficulty w/ Childcare or Family Care: No Living arrangements: with family Spiritual care concerns: No Exam Narrative: APPEARANCE: Well appearing, no pain, no distress, well-nourished. HEAD: normocephalic, atraumatic. EYES: PERRLA/EOMI, conjunctivae clear. NOSE: Normal no drainage EARS:TMS clear with good light reflex. THROAT: Pharynx clear, no exudate. NECK: Supple. No adenopathy, no masses. RESPIRATORY: Airway patent, respirations nonlabored. Clear to auscultation bilaterally, no rales, rhonchi, wheezing. CARDIOVASCULAR: Regular rate and rhythm without murmurs rubs or gallops. ABDOMINAL: Soft, nontender, nondistended, normal bowel sounds MUSCULOSKELETAL: Paraspinal muscle tenderness to palpation NEURO: Alert. Cranial nerves II through XII intact. Good gait. Good coordination SKIN: Warm, dry. Normal Color Course Vital Signs Vital signs: Vital Signs Temperature 98.1 F 04/25/24 12:33 Pulse Rate 76 04/25/24 12:33 Respiratory Rate 18 04/25/24 12:33 Blood Pressure 156/91 H 04/25/24 12:33 Pulse Oximetry 97 04/25/24 12:33 Oxygen Delivery Room Air 04/25/24 12:33 Temperature 98.1 F 04/25/24 12:33 Pulse Rate 71 04/25/24 14:48 Respiratory Rate 16 04/25/24 14:48 Blood Pressure 181/85 H 04/25/24 14:48 Pulse Oximetry 97 04/25/24 14:48 Oxygen Delivery Room Air 04/25/24 12:33 Medical Decision Making MDM Narrative Medical decision making narrative: 64-year-old male present to the emergency department for evaluation for low back pain. Patient denies any incident fall or injury. Suspect muscular strain with associated lumbar radiculopathy. Patient is not diabetic and will be started a Medrol Dosepak. Patient also be provided Flexeril for muscle spasm initial medication for pain control. Patient was encouraged close follow-up with his primary care physician was educated on reasons to return to the emergency department. All questions concerns were addressed patient was well-appearing at time of discharge. Vital Signs Vital Signs: Vital Signs Temperature 98.1 F 04/25/24 12:33 Pulse Rate 76 04/25/24 12:33 Respiratory Rate 18 04/25/24 12:33 Blood Pressure 156/91 H 04/25/24 12:33 Pulse Oximetry 97 04/25/24 12:33 Oxygen Delivery Room Air 04/25/24 12:33 Temperature 98.1 F 04/25/24 12:33 Pulse Rate 71 04/25/24 14:48 Respiratory Rate 16 04/25/24 14:48 Blood Pressure 181/85 H 04/25/24 14:48 Pulse Oximetry 97 04/25/24 14:48 Oxygen Delivery Room Air 04/25/24 12:33 Discharge Plan Discharge Clinical Impression: Low back pain Patient Disposition: Home, Self-Care Condition: Stable Instructions: Antibiotic Form, Lumbar Radiculopathy (ED), Back Pain (ED) Additional Instructions: Medrol Dosepak as directed. Ibuprofen for pain control. Flexeril for muscle spasm. [place] as needed for additional pain control. Have close follow-up with your primary care physician. If you have any worsening symptoms then please call or return to the emergency department. Patient Language: [place] Prescriptions: New methylprednisolone [Medrol ([place])] 4 mg tablets,dose pack See Rx Instructions PO .COMPLEX Qty: 21 0RF Rx Instructions: for 6 days cyclobenzaprine 10 mg tablet 10 mg PO BID PRN (Reason: muscle spasm) Qty: 14 0RF hydrocodone-acetaminophen 5-325 mg tablet 1 tablet PO Q12H PRN (Reason: pain) Qty: 14 0RF No Action tizanidine 4 mg tablet 4 mg PO BID PRN (Reason: muscle spasticity) Qty: 60 5RF triamcinolone acetonide 0.5 % cream 1 applic topical BID Qty: 30 2RF Rx Instructions: use 2x/day for up to 2 weeks, then as needed; apply to lower abd amitriptyline 10 mg tablet 10 mg PO QHS Qty: 30 5RF celecoxib [Celebrex] 100 mg capsule 100 mg PO BID Qty: 60 5RF cetirizine [Zyrtec] 10 mg tablet 10 mg PO DAILY hydrocodone-acetaminophen 5-325 mg Tablet 1 tablet PO Q6H PRN (Reason: breakthrough pain) Qty: 10 0RF cefdinir 300 mg capsule 300 mg PO Q12H Qty: 10 0RF lisinopril 40 mg tablet 40 mg PO DAILY Qty: 30 1RF albuterol sulfate 90 mcg/actuation HFA aerosol inhaler 1 - 2 inh inhalation Q4-6H PRN (Reason: shortness of breath or wheezing) Qty: 8.5 5RF fluticasone propion-salmeterol [Advair Diskus] 250-50 mcg/dose blister with device 1 inh inhalation BID Qty: 60 11RF Follow-up/Referrals: Rasheeda Stovall NP [Primary Care Provider] -
--- OUTSIDE RECORDS SUMMARY | 2024-04-28 14:18 | XMS_ITS | Referral Summary ---
Author Organization [facility] [address] Address [address] [place] [address] Care Team Providers Care Search Engine Marketing Strategist Name Role Phone Augustine Saldana MD Primary Care Provider [phone] Allergies No known active allergies Medications lisinopriL (PRINIVIL,ZESTR IL) 40 mg tablet Take 1 tablet (40 mg total) by mouth daily 30 tablet 5 2 Active cyclobenzaprine (FLEXERIL) 5 mg tablet Take 1 tablet (5 mg total) by mouth 3 (three) times a day as needed for muscle spasms 30 tablet 2 Active Additional Information Patient not taking.Reported on 08/22/2021 oxyCODONE (ROXICODONE) 5 mg immediate release tabletIndicatio ns:Pain Take 1 tablet (5 mg total) by mouth every 4 (four) hours as needed for pain 20 tablet 2 Active Additional Information Patient not taking.Reported on 08/22/2021 amoxicillin-cla vulanate (AUGMENTIN) 500-125 mg per tablet Take 1 tablet by mouth 2 (two) times a day 20 tablet 2 Active acetaminophen 500 mg capsuleIndicati ons:Fever,Pain Take 2 capsules (1,000 mg total) by mouth every 6 (six) hours 30 tablet 2 Active nicotine (NICODERM CQ) 21 mgIndications:N icotine Dependence Place 1 patch on the skin daily 30 patch 2 Active Additional Information Patient not taking.Reported on 08/22/2021 Active Problems Problem Noted Date Diagnosed Date Acute abdominal pain 08/17/2021 Dehydration 08/17/2021 Shortness of breath 08/17/2021 Appendicitis with perforation 08/12/2021 Acute bronchitis due to COVID-19 virus 1 Pain of finger of right hand 09/21/2019 HTN (hypertension) 05/18/2018 COPD (chronic obstructive pulmonary disease) Overview (09/03/2018): Patient has history of dyspnea and associated wheezing and cough for which he is on a p.r.n. albuterol inhaler. Has ongoing symptoms and will benefit from maintenance bronchodilator regimen Snoring 09/27/2015 Overview (09/03/2018): With history of apnea rule out sleep apnea Lung nodule 09/27/2015 Overview (09/03/2018): PET scan shows a 0.4 cm right lower lobe superior segment nodule which will require follow-up in one year based on Fleischner Society criteria guidelines surveillance. Differential includes infectious etiology, granuloma and remotely malignancy. Resolved Problems Problem Noted Date Diagnosed Date Resolved Date DANNY (acute kidney injury) 08/12/2021 Nausea and vomiting 08/12/2021 08/23/19 22 Unilateral inguinal hernia w ithout obstruction or gangrene 02/12/2021 08/22/2021 Overview (02/12/2021): Added automatically from request for surgery [id number] Abdominal pain, RLQ 11/20/2020 08/23/19 22 Muscle cramps 09/21/2019 08/17/2021 Immunizations Name Administration Dates Next Due Influenza, Unspecified 07/03/2021(Deferr ed: Patient Refused),04/06/2020(Deferred: Patient Refused) Social History Tobacco Use Types Packs/Day Years Used Date Smoking Tobacco: Every Day Cigarettes Smokeless Tobacco: Never Alcohol Use Standard Drinks/Week Comments Not Currently 0 (1 standard drink = 0.6 oz pur e alcohol) AUDIT-C Answer Date Recorded Q1: How often do you have a drink containing alc ohol? 2-4 times a month 04/30/2021 Q2: How many drinks containi ng alcohol do you have on a typical day when you are drinking? 1 or 2 04/30/2021 Q3: How often do you have si x or more drinks on one occasion? Never 04/30/2021 PHQ-2 Answer Date Recorded PHQ-2 Total Score (If total score is 3 or more points, staff should administer the PHQ-9) 0 08/22/2021 Sex and Gender Information Value Date Recorded Sex Assigned at Not on file Legal Sex Male 10:17 AM [employer] Gender Identity Not on file Sexual Orientation Not on file Last Filed Vital Signs Vital Sign Reading Time Taken Comments Blood Pressure 146/86 08/22/2021 1:39 PM CDT Pulse 77 08/22/2021 1:39 PM CDT Temperature 36.9 ??C (98.4 ??F) 08/22/2021 1:39 PM CD T Respiratory Rate 20 08/16/2021 12:00 PM CDT Oxygen Saturation 98% 08/22/2021 1:39 PM CDT Inhaled Oxygen Concentration - - Weight 104.3 kg (230 lb) 08/22/2021 1:39 PM CDT Height 188 cm (6' 2 ) 08/22/2021 1:39 PM CDT Body Mass Index 29.53 08/22/2021 1:39 PM CDT Plan of Treatment Not on file Medical Devices Implanted Type Area Neon Technician Device Identifier Shelf Expiration Date Model / Serial / Lot [employer]/C R Bard [id number] Bard Marlex 6x6in Monofilament Gold Standard Flat Sheet Groin - [id number] - [id number] Implanted:Qty: 1 on 04/30/2021 by Marco A Sparks MD at [facility] Mesh Left: Inguinal [employer] Bard [id number] 08/01/2025 [id number] / [id number] / [id number] Insurance [facility] CIGNA CIGNA Advance Directives For more information, please contact: [phone] * Full Code (Latest Code Status on File) Date Activated Date Inactivated Comments 08/12/2021 9:44 PM 08/16/2021 5:52 PM * Full Code Date Activated Date Inactivated Comments 08/12/2021 9:44 PM 08/12/2021 9:44 PM Care Teams Search Engine Marketing Strategist Relationship Specialty Start Date End Date Augustine Saldana MD PCP - General 07/01/18
--- OUTSIDE RECORDS SUMMARY | 2024-04-28 14:18 | XMS_ITS | CONTINUITY OF CARE DOCUMENT ---
Author Name carson byrd Address Unknown Organization [facility] Address [address] [place] [address] [address] [place] [address] Phone [phone] Care Team Providers Care Process Inspector Name Role Phone Blane EAST, Maggy Unavailable [phone] MEHUL LINK MD, SOCRATES Unavailable [phone] INSURANCE PROVIDERS Payer name Policy type / Coverage type [place] red alliance party ID [facility] [id number] Other [id number]
--- OUTSIDE RECORDS SUMMARY | 2024-04-28 14:18 | XMS_ITS | Clinical Summary ---
Author Organization [facility] Address [address] [place] [address]. [place], [place] [id number] [place] [address] Care Team Providers Care Loading Machine Adjuster Name Role Phone Augustine Saldana MD Primary Care Provider [phone] Allergies No known active allergies Medications No known medications Family History Medical History Relation Comments Cancer Father CHF Mother Hypertension Mother Relation Status Comments Father Mother Social History Tobacco Use Types Packs/Day Years Used Date Smoking Tobacco: Every Day Cigarettes Smokeless Tobacco: Current Alcohol Use Standard Drinks/Week Comments Yes 0 (1 standard drink = 0.6 oz pur e alcohol) Sex and Gender Information Value Date Recorded Sex Assigned at Not on file Legal Sex Male 7:34 PM CDT Gender Identity Not on file Sexual Orientation Not on file Last Filed Vital Signs Vital Sign Reading Time Taken Comments Blood Pressure 159/90 09/06/2017 2:27 PM CDT Pulse 89 09/06/2017 2:27 PM CDT Temperature 36.4 ??C (97.5 ??F) 09/06/2017 2:27 PM CD T Respiratory Rate 18 09/06/2017 2:27 PM CDT Oxygen Saturation 97% 09/06/2017 2:27 PM CDT Inhaled Oxygen Concentration - - Weight 95.3 kg (210 lb) 09/06/2017 2:27 PM CDT Height 188 cm (6' 2 ) 09/06/2017 2:27 PM CDT Body Mass Index 26.96 09/06/2017 2:27 PM CDT Plan of Treatment Health Maintenance Due Date Last Done Comments Colorectal Cancer Screening Colonoscopy (10 Years) 1962 Annual Physical 1965 Pneumococcal Vaccine: Pediat rics (0 to 5 Years) and At-Risk Patients (6 to 64 Years) (1 of 2 - PCV) 01/31/1968 Hepatitis C 01/31/1980 DTaP, Tdap and Td Vaccines ( 1 - Tdap) 1981 Zoster Vaccines (1 of 2) 01/31/2012 COVID-19 Vaccine (1 - 2023-2 5 season) 2023 Influenza Adult (#1) 2024 RSV Immunization or 60+ Years (1 - 1-dose 75+ series) 2037 Meningococcal Vaccine Aged Out No abby bee eligible based on patient's age to complete this topic RSV Immunizations Under 20 Months Aged Out No longer eligible based on patient's age to complete this topic Insurance GENERIC - THIRD DEMOCRAT LIABILITY [facility] Care Teams Loading Machine Adjuster Relationship Specialty Start Date End Date Augustine Saldana MD PCP - General FAMILY PRACTICE 02/23/17
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
--- OUTSIDE RECORDS SUMMARY | 2024-04-28 14:18 | XMS_ITS | Encounter Summary ---
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 Historical Provider Final Res ult * PROCEDURE - RESULT (06/14/2018 12:00 AM CDT) Narrative 06/14/2018 12:00 AM CDT Ordered by an unspecified provider. Historical Provider Final Res ult documented in this encounter Visit Diagnoses Not on filedocumented in this encounter Additional Health Concerns Infection Onset Date Last Indicated Resolved Time COVID19 Comment:may 2020 05/11/2020 05/10/2020 04/25/2021 1:[address] COVID: Suspected 08/12/2021 08/12/2021 08/13/2021 4:32 AM CDT documented as of this encounter Care Teams Wildlife Control Agent Relationship Specialty Start Date End Date Augustine Saldana MD PCP - General 07/01/18 documented as of this encounter
== END 2024-04-25 15:27 | disposition home or self-care (01) ==
PROVIDERS: Emergency Provider Emergency Medicine; PCP Nurse Practitioner Family
DX: M54.50 Low back pain, unspecified (principal); J44.9 Chronic obstructive pulmonary disease, unspecified; I10 Essential (primary) hypertension; E53.8 Deficiency of other specified B group vitamins; M19.90 Unspecified osteoarthritis, unspecified site; F41.9 Anxiety disorder, unspecified; F17.210 Nicotine dependence, cigarettes, uncomplicated; Z79.899 Other long term (current) drug therapy
CPT/HCPCS: 99283

== ENCOUNTER → 2024-04-27 15:15 | Outpatient (CLI) | payer OTHER, SELFPAY ==
--- NOTE | ~2024-04-27 | XR_ITS ---
EXAMINATION: XR lumbar spine 2-3V DATE: 04/27/2024 15:32 INDICATION: Low back pain. TECHNIQUE: 3 views of lumbar spine on 4 radiographs were obtained. COMPARISON: Lumbar spine radiograph 12/04/22 FINDINGS: Alignment is normal. There is mild chronic wedging of T11 and T12 vertebral bodies. There i s mild chronic height loss of L5 vertebral body posteriorly. There is mildly decreased disc height fr om L3-L4 through L5-S1. There are endplate osteophytes at all levels. There is multilevel facet joint osteoarthritis, severe in lower lumbar spine. IMPRESSION: 1. Mild lumbar spondylosis. Reviewed, dictated and finalized at location B. [employer]AFF IMPRESSION: 1. Mild lumbar spondylosis.
== END ==
LOC: EXPTROY 15:17
PROVIDERS: PCP Nurse Practitioner Family; Visit Provider Nurse Practitioner Family
DX: M79.604 Pain in right leg (principal); M47.896 Other spondylosis, lumbar region
CPT/HCPCS: 72100

== ENCOUNTER 2024-06-06 12:37 | Emergency (ER) | payer OTHER, SELFPAY ==
[2024-06-06 12:45] VITALS: BP 136/77; PULSE 85; RESP 20; TEMP 37.2; O2SAT 95
--- NOTE | 2024-06-06 12:58 | ED.URI ---
HPI - URI/Sore Throat General Chief Complaint: Upper Respiratory Infection Stated Complaint: Breathing Problems/Cough Time Seen by Provider: 06/06/24 12:50 Source: patient Mode of arrival: ambulatory Limitations: no limitations History of Present Illness HPI Narrative: Chente is a 64-year-old male patient presenting to the clinic today with complaints of cough, feeling fluttering in his chest, and shortness of breath. He reports symptoms have been going on for approximately 6 days. Does have a productive nasty cough. He is a 2 pack-a-day smoker. History of [place] in 2002. MD elicited complaint: cough, nasal congestion and other (shortness of breath) Related Data Home Medications ?Medication ?Instructions ?Recorded ?Confirmed ?Last Taken ?Type cetirizine 10 mg tablet (Zyrtec) 10 mg PO DAILY allergy symptoms 09/29/23 04/27/24 Unknown History budesonide 160 mcg-glycopyr 9 2 inh inhalation BID 04/27/24 04/27/24 Unknown History mcg-formot 4.8 mcg/actuation HFA inhaler (Breztri Aerosphere) Allergies Allergy/AdvReac Type Severity Reaction Status Date / Time No Known Allergies Allergy Verified 06/06/24 12:47 Review of Systems Review of Systems: Pertinent positives per HPI. Patient denies any fever, chills, rash, headache, visual changes, dizziness, chest pain, palpitations, nausea, vomiting, diarrhea, constipation, abdominal pain, or any urinary issues. [facility] Past Medical History Medical History (Updated 06/06/24 @ 13:31 by Damir Florence APRN) Low back pain radiating to right leg Chronic rhinitis Rash and nonspecific skin eruption BMI 28.0-28.9,adult Screening for malignant neoplasm of lung declined by patient Screening for malignant neoplasm of colon declined Bilateral hip pain Chest pain B12 deficiency BMI 30.0-30.9,adult Chronic low back pain with bilateral sciatica Elevated uric acid in blood BMI 29.0-29.9,adult Encounter to establish care Tobacco abuse Hypersomnia Snoring Burning sensation of feet Low back pain Muscle cramping Rhinitis Hernia HTN (hypertension) Heart attack COPD (chronic obstructive pulmonary disease) Arthritis Anxiety Family History Family History Father Alcohol abuse Cancer Diabetes mellitus Mother Hypertension Heart disease Grandparent Alcohol abuse Social History Social History Smoking packs per day: 2 Smoking cigarettes per day: 40.0 Years smoked: 45 Smoking pack-years: 90.00 Smoking status: Current every day smoker Tobacco type: cigarettes Alcohol intake: current Drinks per week: 12 Alcohol use details: BEERS Substance use: current Substance use type: marijuana Other substance usage details: RECREATIONAL AND PAIN Last use: 11/29/23 Do You Feel Safe in your Home?: Yes Lack of Transportation: No Lack of Food: Never True Current Housing: Decline to Answer Concerned About Future Housing: No Difficulty Paying Gas/Electric Bills: No Difficulty Paying for Meds: YES Currently Unemployed: No Education: Decline to Answer Difficulty w/ Childcare or Family Care: No Living arrangements: with family Spiritual care concerns: No Comments At the time of my signature, I reviewed and agree with the nursing past medical, surgical, social, and family history. There is no relevant family history pertinent to the patient complaint. Exam Narrative: General: Well-developed, well nourished, in no apparent distress Head: Normocephalic, atraumatic Eyes: Pupils equally round and reactive to light bilaterally, EOM intact, sclera and conjunctive clear, no discharge, lids normal Ears: TMs intact and clear, ear canals clear, no drainage, grossly hearing normal. Nose: Nares patent, no discharge, no inflammation, no sinus tenderness. Mouth: Oral pharynx without lesions or masses, good dentition, MMM. Neck: Supple, trachea midline, no enlargement of anterior or posterior cervical nodes, no thyroid masses or goiter palpable. Cardio: Regular rate and rhythm, s1 and s2 normal, no murmur appreciated. Resp: Inspiratory wheezing and expiratory rhonchi, no rales or rubs Course Course Emergency Course: Portions of this record may have been created with voice recognition software. Level of Care: Express Care Visit Vital Signs Vital signs: Vital Signs Temperature 37.2 C 06/06/24 12:45 Pulse Rate 85 06/06/24 12:45 Respiratory Rate 20 06/06/24 12:45 Blood Pressure 136/77 06/06/24 12:45 Pulse Oximetry 95 06/06/24 12:45 Oxygen Delivery Room Air 06/06/24 12:45 Temperature 37.2 C 06/06/24 12:45 Pulse Rate 85 06/06/24 12:45 Respiratory Rate 20 06/06/24 12:45 Blood Pressure 136/77 06/06/24 12:45 Pulse Oximetry 95 06/06/24 12:45 Oxygen Delivery Room Air 06/06/24 12:45 Vital signs reviewed MDM - URI/Sore Throat MDM Narrative Medical decision making narrative: At the time of visit patient is resting comfortably on the exam table. Patient appears to be nontoxic. EKG: EKG shows sinus rhythm with occasional PVCs heart rate 77 beats per minute. No ST elevation, depression, or T-wave inversion noted Diagnostics: Chest x-ray was performed and negative for any acute cardiopulmonary process. Medications: DuoNeb handheld treatment given in the clinic today Plan: I suspect patient has COPD exacerbation with occasional PVCs. Prescription for prednisone, azithromycin, and albuterol inhaler was sent to the pharmacy. Supportive measures were discussed with the patient and they voiced understanding discharge instructions and agrees to treatment plan. Return precautions reviewed Differential Diagnosis Differential diagnosis: Likely upper respiratory infection, otitis media, sinusitis, viral infection, bronchitis, influenza, pharyngitis and other (Pneumonia) Imaging Data Radiologist's impression: ITS Impressions Chest X-Ray 06/06/24 13:15 IMPRESSION: 1. No acute cardiopulmonary disease. ECG Data EKG #1: Attestation: I personally reviewed and interpreted this ECG as follows: ECG completion date: 06/06/24 ECG completion time: 13:05 Interpretation: EKG shows sinus rhythm with occasional PVC. Any 7 beats per minute. No ST elevation, depression, or T-wave inversion noted [place] interval is 146 milliseconds, QRS durations 81 milliseconds, QT-QTC is 382-414 milliseconds, P-R-T axis is 47 35 71 Discharge Plan Discharge Clinical Impression: Acute exacerbation of chronic obstructive pulmonary disease, Premature ventricular contraction Patient Disposition: Home, Self-Care Condition: Stable Instructions: Antibiotic Form, COPD (Chronic Obstructive Pulmonary Disease) (ED), Premature Ventricular Contractions (ED) Additional Instructions: Chest x-rays negative for any acute cardiopulmonary process. EKG shows sinus rhythm with occasional PVCs. Take prescription medications only as prescribed-prednisone, azithromycin, and albuterol inhaler Increase fluids and stay well hydrated Tylenol/motrin for pain/fever Flonase and OTC antihistamines as directed Vicks vapor rub to open sinuses Sinus rinses for congestion Cepacol spray, cough drops, throat lozenges, warm tea with honey/lemon, gargle salt water to soothe throat BRAT diet for diarrhea Clear liquids x 24 hours then advance as tolerated for nausea/vomiting Go to the ED if you develop a worsening in your condition- high fever not controlled by Tylenol or Motrin, dehydration, weakness, lethargy, shortness of breath, or chest pain. Follow up with your PCP in 3-5 days if symptoms persist. Patient Language: Malay Prescriptions: New azithromycin 250 mg tablet See Rx Instructions .ROUTE .COMPLEX Qty: 6 0RF Rx Instructions: For 250 mg dose pack: take 500 mg today (day 1), then 250 mg for 4 days (days 2-5) prednisone 20 mg tablet 40 mg PO DAILY 5 Days Qty: 10 0RF albuterol sulfate 90 mcg/actuation HFA aerosol inhaler 2 puff inhalation Q4-6H PRN (Reason: shortness of breath or wheezing) 30 Days Qty: 8.5 0RF No Action albuterol sulfate 90 mcg/actuation HFA aerosol inhaler 1 - 2 inh inhalation Q4-6H PRN (Reason: shortness of breath or wheezing) Qty: 8.5 5RF celecoxib [Celebrex] 100 mg capsule 100 mg PO BID Qty: 60 5RF lisinopril 20 mg tablet 20 mg PO DAILY Qty: 30 5RF tizanidine 4 mg tablet 4 mg PO BID PRN (Reason: muscle spasticity) Qty: 60 5RF gabapentin 100 mg capsule 100 mg PO QHS Qty: 30 0RF Breztri Aerosphere 160-9-4.8 mcg/actuation HFA aerosol inhaler 2 inh inhalation BID Patient Comments: sample provided cetirizine [Zyrtec] 10 mg tablet 10 mg PO DAILY hydrocodone-acetaminophen 5-325 mg tablet 1 tablet PO Q12H PRN (Reason: pain) Qty: 14 0RF fluticasone propion-salmeterol [Advair Diskus] 250-50 mcg/dose blister with device 1 inh inhalation BID Qty: 60 11RF Follow-up/Referrals: PHYSICIAN,AGRICULTURAL SERVICE WORKER [Primary Care Provider] - Stand Alone Forms: Work/School Release IP Time of Disposition: 13:32 Quality NIHSS Nursing Documentation ED NIHSS nursing documentation: reviewed/agree
[2024-06-06] MEDS: IPRATROPIUM 0.5 MG/ALBUTEROL SULFATE 2.5 MG AMPUL.NEB 3 ML INHALATION (13:15)
== END 2024-06-06 13:41 | disposition home or self-care (01) ==
PROVIDERS: Emergency Provider Nurse Practitioner Family
DX: J44.1 Chronic obstructive pulmonary disease with (acute) exacerbation (principal); I49.3 Ventricular premature depolarization; F17.210 Nicotine dependence, cigarettes, uncomplicated; I10 Essential (primary) hypertension; I25.2 Old myocardial infarction; M19.90 Unspecified osteoarthritis, unspecified site
CPT/HCPCS: 71046; 93005; 99213; G0463

== ENCOUNTER 2025-01-26 13:55 | Outpatient (CLI) | payer OTHER, SELFPAY ==
--- NOTE | ~2025-01-26 | US_ITS ---
US art doppler w press LE BI INDICATION: Peripheral vascular disease TECHNIQUE: Segmental pressures and plethysmographic and Doppler waveforms of the brachial and lower extremity arteries were obtained. COMPARISON: None. FINDINGS: Right and left brachial artery pressures of 137 mm Hg and 139 mm Hg, respectively, are concordant (normal difference <= 30 mmHg). There is mixed monophasic and biphasic flow in the lower extremity arteries bilaterally. The right ankle-brachial index (KEHINDE) is 0.6 (normal >= 0.9-1.0). The right great toe-brachial index (TBI) is 0.55 (normal >= 0.60). The left KEHINDE is 0.83. The left TBI is 0.68. IMPRESSION: 1. Diminished bilateral ankle brachial indices and right toe brachial index consistent with moderate peripheral arterial disease on the right and mild on the left. Reviewed, dictated and finalized at location O. IMPRESSION: 1. Diminished bilateral ankle brachial indices and right toe brachial index con sistent with moderate peripheral arterial disease on the right and mild on the left.
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
--- OUTSIDE RECORDS SUMMARY | 2025-01-26 14:56 | XMS_ITS | Encounter Summary ---
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
== END 2025-01-26 13:56 | disposition home or self-care (01) ==
PROVIDERS: PCP Nurse Practitioner Family; Visit Provider Internal Medicine Cardiovascular Disease
DX: I73.9 Peripheral vascular disease, unspecified (principal)
CPT/HCPCS: 93923

== ENCOUNTER 2025-02-08 09:17 | Outpatient (CLI) | payer OTHER, SELFPAY ==
--- OUTSIDE RECORDS SUMMARY | 2025-02-08 09:58 | XMS_ITS | Clinical Summary ---
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 Gender Identity Not on file Sexual Orientation [...] on file Medical Devices Implanted Type Area Job Boss Device Identifier Shelf Expiration Date Model / Serial / Lot [employer] Inc/C R Bard [id number] Bard Marlex 6x6in Monofilament Gold Standard Flat Sheet Groin - [id number] - [id number] Implanted:Qty: 1 on 04/30/2021 by Marco A Sparks MD at [facility] Mesh Left: Inguinal [employer]/C R Bard [id number] 08/01/2025 [id number] / [id number] / [id number] Insurance CIGNA CIGNA CIGNA Advance Directives For more information, please contact: [phone] * Full Code (Latest Code Status on File) Date Activated Date Inactivated Comments 08/12/2021 9:44 PM 08/16/2021 5:52 PM * Full Code Date Activated Date Inactivated Comments 08/12/2021 9:44 PM 08/12/2021 9:44 PM Care Teams Miner Operator Relationship Specialty Start Date End Date Augustine Saldana MD PCP - General 07/01/18
--- OUTSIDE RECORDS SUMMARY | 2025-02-08 09:58 | XMS_ITS | Encounter Summary ---
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
--- NOTE | 2025-03-05 15:51 | WPDHOMESLEEP ---
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 The patient admits to snoring loudly, excessive daytime sleepiness, interruptions in breathing while asleep and trouble maintaining sleep. He does choke or gasp at night. He does have trouble breathing on his back. He denies morning headaches. He does have a dry or sore mouth / throat in the morning. He denies nocturnal heartburn. He denies nocturia. He denies having difficulty falling asleep. He does have difficulty staying asleep. He does have difficulty returning to sleep if he wakes up throughout the night. He denies any hypnotic or sedative use. He denies feeling anxious about sleep. He does feel tired or sleepy during the day. He does feel tired in the morning. He does have the urge to fall asleep during the day. He does feel drowsy while driving. He denies sleep paralysis, cataplexy and hypnagogic/ hypnopompic hallucinations. He denies clenching or grinding his teeth. He does kick her jerk his legs excessively. He does have a restless feeling in his legs. He does have an urge to move his legs that gets worse with rest and better with activity. It is predominantly in the evening and it does cause a disturbance in asleep. He goes to bed at 10:00 p.m. on work days and at 11:45 p.m. on his days off. he gets 3 hours of sleep on work days and 4 hours on his days off. His sleep is much more restorative on his days off. He denies taking any planned naps. He denies dream enactment behavior. He denies sleep walking. He consumes 1-2 cups of caffeinated beverage per day. He consumes more than 3 alcoholic beverages 3-4 nights per week. He smokes more than 1 pack of cigarettes per day. He denies exercising on a regular basis. [facility] Past Medical History Medical History Low back pain radiating to right leg Chronic rhinitis Rash and nonspecific skin eruption BMI 28.0-28.9,adult Screening for malignant neoplasm of lung declined by patient Screening for malignant neoplasm of colon declined Bilateral hip pain Chest pain B12 deficiency BMI 30.0-30.9,adult Chronic low back pain with bilateral sciatica Elevated uric acid in blood BMI 29.0-29.9,adult Encounter to establish care Tobacco abuse Hypersomnia Snoring Burning sensation of feet Low back pain Muscle cramping Rhinitis Hernia HTN (hypertension) Heart attack COPD (chronic obstructive pulmonary disease) Arthritis Anxiety Family History Family History Father Alcohol abuse Cancer Diabetes mellitus Mother Hypertension Heart disease Grandparent Alcohol abuse Social History Social History Smoking packs per day: 2 Smoking cigarettes per day: 40.0 Years smoked: 45 Smoking pack-years: 90.00 Smoking status: Current every day smoker Tobacco type: cigarettes Alcohol intake: current Drinks per week: 12 Alcohol use details: BEERS Substance use: current Substance use type: marijuana Other substance usage details: RECREATIONAL AND PAIN Last use: 11/29/23 Lack of Transportation: No Lack of Food: Never True Current Housing: Decline to Answer Concerned About Future Housing: No Difficulty Paying Gas/Electric Bills: No Difficulty Paying for Meds: YES Currently Unemployed: No Education: Decline to Answer Difficulty w/ Childcare or Family Care: No Living arrangements: with family Spiritual care concerns: No Medications Home Medications ?Medication ?Instructions ?Recorded ?Confirmed ?Type cetirizine 10 mg tablet (Zyrtec) 10 mg PO DAILY allergy symptoms 09/29/23 01/13/25 History hydrocodone 5 mg-acetaminophen 325 1 tablet PO Q12H PRN pain #14 tabs 04/25/24 01/13/25 Rx mg tablet albuterol sulfate 90 mcg/actuation 1 - 2 inh inhalation Q4-6H PRN 04/27/24 01/13/25 Rx aerosol inhaler shortness of breath or wheezing #8.5 grams celecoxib 100 mg capsule (Celebrex) 100 mg PO BID #60 caps 04/27/24 01/13/25 Rx gabapentin 100 mg capsule 100 mg PO QHS #30 caps 04/27/24 01/13/25 Rx tizanidine 4 mg tablet 4 mg PO BID PRN muscle spasticity 04/27/24 01/13/25 Rx #60 tabs albuterol sulfate 90 mcg/actuation 2 puff inhalation Q4-6H PRN 06/06/24 01/13/25 Rx aerosol inhaler shortness of breath or wheezing 30 days #8.5 grams azithromycin 250 mg tablet See Rx Instructions PO .COMPLEX #6 06/06/24 01/13/25 Rx tabs prednisone 20 mg tablet 40 mg (2 x 20 mg) PO DAILY 5 days 06/06/24 01/13/25 Rx #10 tabs budesonide 160 mcg-glycopyr 9 2 inh inhalation BID #10.7 grams 06/23/24 01/13/25 Rx mcg-formot 4.8 mcg/actuation HFA inhaler (Breztri Aerosphere) metoprolol succinate 25 mg 25 mg PO DAILY #30 tabs 08/12/24 01/13/25 Rx tablet,extended release 24 hr lisinopril 20 mg tablet 20 mg PO DAILY #30 tabs 11/15/24 01/13/25 Rx Sleep Procedure The sleep study was completed using [employer] a technically adequate device with seven channels: peripheral arterial tone, actigraphy, body position, snore, respiratory movement, pulse oximetry, sleep staging, and heart rate. Prior to using the device, the patient received verbal and written instructions for its application and was provided with the help desk phone number for additional telephonic instruction with 24-hour availability of qualified personnel to answer questions. The study was scored using CMS guidelines. Sleep Architecture The total recording time is 8 hrs, 1 min. The total sleep time is 6 hrs, 58 min. Sleep latency is 17 minutes. REM latency is 109 minutes. The patient had 7 episodes of waking. Sleep architecture shows 22.7% deep sleep, 39.7% light sleep, and (as % Total Sleep Time) showed NREM (Light 39.7%; Deep 22.7%), and a 37.6% stage REM. The patient spent 55.5% of total sleep time in the supine position. Sleep efficiency was 86.90. Respiratory Analysis The overall AHI (pAHI 4%:) is 12.8. The overall AHI (pAHI 3%:) is 25.8. The central AHI is 1.4. The AHI was 18.8 in NREM and 37.2 in REM sleep. The AHI was 18.8 in Supine and 35.1 in Non-supine sleep. Percent of Alvarez Jones respirations is 0.0. Oximetry Data The oxygen desaturation index (LOLITA 4%:) is 9.2. The mean saturation is 90%, and the lowest saturation is 84%. Time spent with saturation < 88% is 36.3 minutes. Snoring Profile Snoring average intensity is 42 dB. The patient snored above 45 decibels for 63.7 minutes, 15.2% of sleep time. Cardiac Profile The average pulse rate is 61 beats per minutes. The lowest pulse rate is 47 bpm. The highest pulse rate reported is 89 bpm. Atrial fibrillation was not detected. Premature beats occur <0.1 per minute. Assessment and Plan Assessment and Plan (1) TANYA (obstructive sleep apnea): Code(s): G47.33 - Obstructive sleep apnea (adult) (pediatric) Status: Acute Assessment and Plan: The patient had an overall AHI of 12.8 with desaturation down to 84%. This is consistent with mild sleep apnea. Due to the patient's hypertension, he qualifies for treatment. The patient spent 36.3 minutes with an oxygen saturation below 88%, which is likely due to COPD. I recommend that the patient have a CPAP Titration study with the use of a hypnotic to ensure we obtain enough sleep data and find an optimal pressure setting. This should be used with all episodes of sleep.? Compliance should be reviewed within 31-90 days of starting therapy for usage greater than 4 hours per night greater than 70% of the nights. The patient should be asked about symptoms such as?excessive daytime sleepiness, quality of sleep, decreased nocturia, increased?mental functioning such as memory, mood, and concentration. Data The data obtained during this sleep study is adequate for interpretation. Certification This sleep study has been reviewed by a board certified sleep medicine physician.
[2025-03-05 15:53] VITALS: BMI 29.5
== END 2025-02-09 12:32 | disposition home or self-care (01) ==
PROVIDERS: PCP Nurse Practitioner Family; Visit Provider Internal Medicine Cardiovascular Disease
DX: G47.10 Hypersomnia, unspecified (principal); G47.33 Obstructive sleep apnea (adult) (pediatric)
CPT/HCPCS: 95800